=== PATIENT | female | born 1985 ===

== ENCOUNTER 2024-08-19 12:37 | Outpatient (REF) | payer MEDICAID, SELFPAY ==
[2024-08-19 13:55] LABS: Estimated Average Glucose 111 mg/dL; Hemoglobin A1c % 5.5 % (<6.0)
[2024-08-19 14:24] LABS: Alanine Aminotransferase 8 U/L (0-31); Alkaline Phosphatase 47 U/L (39-117); Anion Gap 9 (12-20); Aspartate Amino Transferase 13 U/L (5-31); Bilirubin Total 0.8 mg/dL (0.0-1.0); Blood Urea Nitrogen 5 mg/dL (9-16); Calcium 8.7 mg/dL (8.4-10.2); Carbon Dioxide 23 mmol/L (22-29); Chloride 111 mmol/L (96-108); Cholesterol 220 mg/dL (<200); Estimated Glomerular Filt Rate > 60; Glucose Random 75 mg/dL (60-115); HDL Cholesterol 45 mg/dL (>40); LDL Cholesterol Calculated 150 mg/dL (<100); Potassium 4.1 mmol/L (3.3-5.1); Sodium 139 mmol/L (135-145); TSH reflex Free T4 3.57 uIU/mL (0.32-4.0); Total Protein 7.6 g/dL (6.5-8.0); Triglycerides 129 mg/dL (<150)
[2024-08-20 11:53] LABS: Bacterial Vaginosis PCR POSITIVE (Negative); Candida Group PCR DETECTED (Not Detect); Candida glab krusei PCR NOT DETECTED (Not Detect); Trichomonas vaginalis PCR NOT DETECTED (Not Detect)
[2024-08-20 12:26] LABS: CT PCR NOT DETECTED (Not Detect.); NG PCR NOT DETECTED (Not Detect.)
== END 2024-08-19 12:38 | disposition home or self-care (01) ==
LOC: HO.HHCL 12:37
PROVIDERS: Visit Provider Nurse Practitioner Family
DX: N89.8 Other specified noninflammatory disorders of vagina (principal); E04.9 Nontoxic goiter, unspecified; R03.0 Elevated blood-pressure reading, without diagnosis of hypertension; Z13.1 Encounter for screening for diabetes mellitus
CPT/HCPCS: 0352U; 36415; 80053; 80061; 83036; 84443; 87491; 87591

== ENCOUNTER 2025-02-28 11:50 | Outpatient (REF) | payer MEDICAID, SELFPAY ==
--- OUTSIDE RECORDS SUMMARY | 2025-02-28 13:52 | XMS_ITS | Encounter Summary ---
Author Organization [employer] Address [address] [place] [address] Care Team Providers Care Bakery Technician Name Role Phone Racheal Hart NP Primary Care Provider [phone] Encounter Details Date Type Department Care Team (Latest Contact Info) Description 02/28/2025 Travel Social History Tobacco Use Types Packs/Day Years Used Date Smoking Tobacco: Never Passive Smoke Exposure: Never Smokeless Tobacco: Never Depression Answer Date Recorded Patient Health Questionnaire-9 Score 15 02/28/2025 Patient Health Questionnaire-9 Score 15 02/28/2025 Last PHQ-9: Questionnaire Data Not on file 0 02/28/2025 Housing Stability Answer Date Recorded What is your housing situation today? I am not s ure 02/28/[address] you li ve. Do you have problems with any of the following? I am not sure 02/28/2025 Food Insecurity Answer Date Recorded Within the past 12 months, y ou worried that your food would run out before you got money to buy more: Sometimes True 2024 Within the past 12 months,th e food you bought just didn't last and you didn't have enough money to get more: Often true 02/28/2025 Utilities Answer Date Recorded In the past 12 months, has t he electric, gas, oil or water company threatened to shut off services in your home? No 02/28/2025 Depression Answer Date Recorded Patient Health Questionnaire-2 Score 4 02/28/2025 Internet Access Answer Date Recorded Internet Access Q1 Yes 02/28/2025 Internet Access Q2 Not on file 02/28/2025 Comments Unknown Sex and Gender Information Value Date Recorded Sex Assigned at Female 07/10/2024 9:51 AM EDT Legal Sex Female 9:49 AM EDT Gender Identity Female 07/10/2024 9:51 AM EDT Sexual Orientation Straight 07/10/2024 9: 51 AM EDT documented as of this encounter Plan of Treatment Upcoming Encounters Date Type Department Care Team (Late st Contact Info) Description 03/14/2025 11:00 AM EDT Clinical Support [address] [address] 05/12/2025 2:30 PM EDT Office Visit [address] [address] Racheal Hart NP [address] [place] [address] documented as of this encounter Visit Diagnoses Not on filedocumented in this encounter Additional Health Concerns Assessment Noted Time PHQ-9 Depression Total Score: 15 025 10:25 AM EDT documented as of this encounter Care Teams Bakery Technician Relationship Specialty Start Date End Date Racheal Hart NP [address] [place] [id number] PCP - General Family Medicine 12/30/24 documented as of this encounter
--- OUTSIDE RECORDS SUMMARY | 2025-02-28 13:52 | XMS_ITS | Clinical Summary ---
Author Organization [facility] Address [address] [place] [address] Care Team Providers Care Development Mechanic Name Role Phone Jostin Alvarado MD Primary Care Provider + Source Comments PLEASE NOTE, if this patient is a minor, it may be UNLAWFUL to discuss sensitive information that is contained in these records (such as FAMILY PLANNING, MENTAL HEALTH or SUBSTANCE ABUSE) with the minor patient's parent or other person without the patient's specific authorization.[facility] Allergies No known active allergies Medications acetaminophen (TYLENOL) 500 mg tabletIndication s:Pelvic pain Take 1 Tablet by mouth every 6 (six) hours as needed for pain 60 Tablet 2 Active prenat.vits,renny, woz-xyhx-vdfhe per tabletIndication s:Pelvic pain,27 weeks gestation of ([facility]) Take 1 Tablet by mouth once daily 90 Tablet 2 2 Active blood pressure test kit-mediumIndica tions:Chronic hypertension affecting ([facility]) Use twice daily 1 Kit 2 Active polyethylene glycol, PEG, 3350 17 gram packet Take 17 g by mouth once daily as needed for constipation 2 Active ferrous sulfate 325 mg (65 mg iron) tablet Take 1 Tablet by mouth every other day 2 Active NIFEdipine (PROCARDIA XL) 30 mg 24 hr tabletIndication s:Chronic hypertension Take 1 Tablet by mouth daily 90 Tablet 1 3 Active escitalopram (LEXAPRO) 10 mg tablet Take 1 Tablet by mouth once daily 90 Tablet 1 3 Active Active Problems Problem Noted Date Diagnosed Date Lives in homeless usp 01/19/2023 Overview (01/19/2023): Pt currently living in a usp, a hotel in [place], [place] Chronic hypertension 12/05/2022 Overview (12/27/2022): 12/27/2022: Taking 30 mg because 60 mg makes her dizzy but BP high; continue 30 mg and set up for remote BP monitoring 12/05/22: Taking Nifedipine 60 mg XL q am. Assessment & Plan (12/27/2022 3:01 PM EST): Pt reports taking 30 mg of nifedipine because 60 mg makes her dizzy; her BP today is 159/99 and she confirmed she took her medication today. In order to get better picture will register patient for remote BP monitoring - F/u in 1 week and follow via remote monitoring Anxiety and depression 12/05/2022 Overview (12/27/2022): ( ) F/U (ordered for within 1 month) 12/27/2022: Pt feeling much better on lexapro; advised pt to continue for at least 6 months to prevent recurrence 12/05/22: Rx Lexapro today. Counseled re side effects and risk of increased SI/HI and when to go to the ED. Discussed possible delay to effect. Referred to . 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 Now only taking nifedipine 60mg XL QAM and feeling very well. 10/18/2022: Nifedipine XL 60 mg at night and Labetalol 200 mg tablets-- 2 tablets in the morning (pt self-discontinued the evening Labetalol due to dizziness 1 hour later). Home BP checks bid. 10/04/2022: Re-presented @32 weeks with severe PEC and BPP 01/04--> Delivered by [facility]. 09/21/2022: Hospitalized 09/15- at [facility] for cHTN exacerbation, had severe range Bps but otherwise normal work-up, started on Nifedipine. Currently on Nifed 30QAM and 60QPM and continue Aspirin. BP normal at this visit. (x) ASA (ordered 07/27/22) ( ) BP checks at home (Rx sent) 09/01/22: Baseline PIH labs WNL. 24 hour urine protein collection 106. Pt had GHTN in 1st and took medications, but went into labor and had a normal delivery at term. With her second , she was diagnosed w/ CHTN and had an emergency for abnormal dopplers in the setting of CHTN at 29 wks. Assessment & Plan (10/20/2022 10:47 AM EST): Please continue to take Nifedipine XL 60 mg at night. Also take Labetalol 200 mg tablets-- 2 tablets in the morning. Take your blood pressure twice daily. 1.) Just before you take Nifedipine 2.) In the morning before taking Labetalol. Assessment & Plan (10/04/2022 3:19 PM EST): PT with worsening cHTN, started on Nifedipine 2 weeks ago. Pt reports today she is feeling unwell. Reports severe SAMANIEGO. Only gets rare SAMANIEGO when her pressure is high. but this one is very bad. PT appears unwell, Unable to keep eyes open. I informed pt of my concern for possible PreE and [facility]. History of appendectomy 07/27/2022 Resolved Problems Problem Noted Date Diagnosed Date Resolved Date Chronic hypertension affecti ng ([facility]) 09/15/2022 12/05/2022 Suboptimal dating 09/14/2022 12/05/2022 Overview (10/04/2022): Dating US at 27+5 wks gest. Sure LMP High-risk in third trimester ([facility]) 09/14/2022 12/05/2022 AMA (advanced maternal age) multigravida 35+ ([facility]) 09/14/2022 12/05/2022 Glucose intolerance 09/02/2022 12/05/19 23 Overview (09/07/2022): 09/06/2022: 3 hour GTT neg, 1/4 values elevated. 09/01/2022: 1 hour GTT 178. 3 hour ordered. Desires PP BTL 08/31/2022 12/05/2022 Overview (08/31/2022): 08/31/22: Counseling done and consent signed. Copy given to pt. History of delivery 07/27/2022 12/05/2022 Overview (09/21/2022): [ ] Clarify LTCS or Classical with patient if possible? check list w/ BTL: [] Sign surgical consent (Note: some OBs do this on day of surgery) [] Place orders placed in [facility] (can be done when requesting the case) [] Hibiclens instructions reviewed with patient (see .LgyHibiclensInstructions) [] Surgeon aware [] booked for: [x] Submit OR packet to assistant corporate secretary (if Main OR is needed, remember to request it) [x] Request the case in [facility] (Orders Only, Case Request LD Operating Room) Urgent at 29 wks gest in 2019 due to abnormal dopplers in the setting of CHTN. History of delivery 07/27/2022 12/05/2022 Overview (07/29/2022): Urgent at 29 wks gest in 2019 due to abnormal dopplers in the setting of CHTN and placental abruption. Fetus present>CHTN 07/27/2022 3 Overview (10/04/2022): Problems: cHTN on medication (worsening in 3rd trimester), Obesity (pre preg BMI 35), AMA (37) [ ] Deliver by 37 wk due to cHTN on medications. [ ] BPPs weekly starting at 32 wks -> scheduled for afternoons at [place] [ ] Growth USs monthly starting at 28 wks>ordered 09/14/22 (x) Level 2 US (ordered for 07/27/22)>WNL Normal intrauterine pregnanc y, antepartum ([facility]) 07/27/2022 12/05/2022 Overview (10/04/2022): Do not delete from problem list OB Checklist 07/27/2022 12/05/2022 Overview (09/21/2022): [] COVID vax counseling [x] Flu Vaccine: 09/21/22 [x] OBPE heart/lungs [x] Breast/pelvic exam [x] Obesity added to problem list (or N/A) and early HbA1c done>N/A [x] Aspirin? (see .LOBASPIRINGUIDELINES) [x] Surgical History reviewed and added to the problem list [] CfDNA: ordered [x] OB Intake reviewed .LobIntakeReview [x] Initial labs reviewed w/ patient [] Genetic carrier screening reviewed w/ patient: ordered [x] JANET finalized in Dating module of chart [x] OB Anatomy Survey completed (order at 13+)>ordered 08/31/22 [x] Tubal ligation addressed (24+) [x] 26+ week labs (26'0+)>ordered 08/31/22 [x] TDaP (28+) [x] Rhogam given if Rh neg (28)- N/A [x] 30 week surveillance plan [] STD re-screen (36+) .[id number] [] GBS sent (36'0+) [] Presentation confirmed (36+) by 07/27/2022 12/05/2022 Overview (10/06/2022): Delivered 10/05/2022 [facility] [place] [facility] [place] Presented to [facility] with SAMANIEGO & severe HTN 180/116 @29w6d --> [place] [facility] [place]: Pt still does not have insurance. We were not able to get ahold of her because she did not have a working phone. She now has a phone and Madan is taking her to the enrollment dept today. Presented to care at 22+5 wks gest. Sure LMP. Moved from [facility] in mid June. No previous care. Routine PCP Mom: No primary care provider on file. PCP Baby: Regular OB provider: Expects: Girl Support: Pain management: Feeding: PPBC: Unspecified pre-existing hyp ertension complicating , unspecified trimester ([facility]) 07/27/2022 12/05/2022 Overview (10/18/2022): 09/21/2022: Hospitalized 09/15- at [facility] for cHTN exacerbation, had severe range Bps but otherwise normal work-up, started on Nifedipine. Currently on Nifed 30QAM and 60QPM and continue Aspirin. BP normal at this visit. Received BMZ 09/14 and 09/15 (x) ASA (ordered 07/27/22) ( ) BP checks at home (Rx sent) 09/01/22: Baseline PIH labs WNL. 24 hour urine protein collection 106. Pt had GHTN in 1st and took medications, but went into labor and had a normal delivery at term. With her second , she was diagnosed w/ CHTN and had an emergency for abnormal dopplers in the setting of CHTN at 29 wks. Last Assessment & Plan: PT with worsening cHTN, started on Nifedipine 2 weeks ago. Pt reports today she is feeling unwell. Reports severe SAMANIEGO. Only gets rare SAMANIEGO when her pressure is high. but this one is very bad. PT appears unwell, Unable to keep eyes open. I informed pt of my concern for possible PreE and advised [facility]. Immunizations Immunization Administration Dates Next Due Flu, Preservative Free 09/21/2022 Hep B, Adult/Adol (ENERGIX/RECOMBIVAX) TDAP 08/31/2022 Family History Medical History Relation Name Comments No Known Problems Brother x5 No Known Problems Father No Known Problems Mother No Known Problems Sister 1 Relation Name Status Comments Brother x5 Alive Father Alive Mother Sister 1 Alive Social History Tobacco Use Types Packs/Day Years Used Date Smoking Tobacco: Never Passive Smoke Exposure: Never Smokeless Tobacco: Never Tobacco Cessation:Counseling Given: Not Answered Alcohol Use Standard Drinks/Week Comments Never 0 (1 standard drink = 0.6 oz pur e alcohol) Social Connections Answer Date Recorded Connectedness 0 08/05/2024 Financial Resource Strain Answer Date R ecorded Financial Resource Strain 0 2021 Stress Answer Date Recorded Stress 0 07/22/2022 Physical Activity Answer Date Recorded Physical Activity 0 07/22/2022 Food Insecurity Answer Date Recorded Food 0 08/31/2022 Transportation Needs Answer Date Record ed Transportation 0 08/31/2022 Housing Stability Answer Date Recorded Housing 0 08/31/2022 Safety and Environment Answer Date Jordan rded Safety 0 07/22/2022 Utilities Answer Date Recorded Utilities 0 08/31/2022 Employment Answer Date Recorded Stress 0 08/31/2022 Comments No Sex and Gender Information Value Date Recorded Sex Assigned at Not on file Legal Sex Female 6:37 AM PDT Gender Identity Not on file Sexual Orientation Not on file Last Filed Vital Signs Vital Sign Reading Time Taken Comments Blood Pressure 159/99 12/27/2022 2:20 PM EST Pulse 83 12/27/2022 2:20 PM EST Temperature 35.7 ??C (96.3 ??F) 12/27/2022 2:20 PM ES T Respiratory Rate 18 12/27/2022 2:20 PM EST Oxygen Saturation 98% 10/04/2022 2:32 PM EST Inhaled Oxygen Concentration - - Weight 80.9 kg (178 lb 6.4 oz) 12/27/2022 2:20 P M EST Height 154.9 cm (5' 1 ) 12/27/2022 2:20 PM EST Body Mass Index 33.71 12/27/2022 2:20 PM EST Plan of Treatment Health Maintenance Due Date Last Done Comments Anxiety Screening 1985 HPV Screening 1985 Lipid Screening 1985 Tobacco Screening 1985 Relationship Safety Screening/Counseling 2000 Imm-Hepatitis B (2 of 3 - 19 + 3-dose series) 10/12/2022 09/14/2022 Depression Monitoring 01/18/2023 10/18/2022, Diabetes Screening 10/07/2023 10/07/2022, 1 12/05/2021, 09/14/2022, Additional history exists [id number]-00 ( season) 2024 Imm-Influenza (#1) 2024 09/21/2022 Alcohol and Drug Screen 11/27/2024 10/18/2022 Pap Smear 08/03/2025 08/03/2022 Cervical Cancer Screening 08/03/2027 Pap + HPV 08/03/2027 08/03/2022 Imm-DTaP/Tdap/Td (2 - Td or Tdap) 08/31/2032 HIV Screening Completed 09/01/2022, 09/01/2022 Hepatitis B Screening Completed 09/01/2022, Hepatitis C Screening Completed 09/01/2022, Cervical Ablation/Cold-Knife Conization Discontinued Cervical Cryotherapy Discontinued Colposcopy Discontinued Endometrial Biopsy Discontinued Excision/Leep Discontinued HPV Genotyping Discontinued Vaginal Pap Discontinued Vulvoscopy Discontinued Procedures Procedure Name Priority Date/Time Associated Diagnosis Comments GTT GLUCOSE 3HR Routine 09/06/2022 8:59 AM EDT Glucose intolerance HIV 1/2 AG/AB Routine 09/01/2022 2:20 PM EDT 27 weeks gestation of HEPATITIS B SURFACE AG Routine 09/01/2022 2:20 PM EDT 27 weeks gestation of HEPATITIS C ANTIBODY Routine 09/01/2022 2:20 PM EDT 27 weeks gestation of [facility] CYTOLOGY REPORT Routine 08/03/2022 5 :53 PM EDT Screening for malignant neoplasm of cervix from Last 3 Months or Most Recently Relevant to Health Maintenance Results * GTT GLUCOSE 3HR (09/06/2022 8:59 AM EDT) GLUCOSE FASTING 72 65 - 99 mg/dL [facility] HALF HR GLUCOSE PENDING mg/dL [facility] ONE HR GLUCOSE 157 mg/dL [facility] TWO HR GLUCOSE 157 mg/dL [facility] THREE HR GLUCOSE 127 mg/dL [facility] Comment:Processed and/or per formed at [address] [place] [address] ONE HR GLUCOSE 157 mg/dL [facility] TWO HR GLUCOSE 157 mg/dL [facility] THREE HR GLUCOSE 127 mg/dL [facility] Comment:Processed and/or per formed at [address] [place] [address] Blood Blood / Unknown 09/06/2022 8 :59 AM EDT Tianna Vann MD LAB - BLOOD DRAW Final Resu lt [address]?? [place] [address], * HIV 1/2 AG/AB (09/01/2022 2:20 PM EDT) HIV 1/2 AB/AG Negative Negative [facility] Comment:Processed and/or per formed at [address] [place] [address] Blood Blood / Unknown 09/01/2022 2 :20 PM EDT Rufus Boone CNM LAB - BLOOD DRAW Final Result [address] [place] [address], [place] [phone] * HEPATITIS B SURFACE AG (09/01/2022 2:20 PM EDT) HBV SURFACE ANTIGEN Negative Negative [facility] Comment:Processed and/or per formed at [address] [place] [address] Blood Blood / Unknown 09/01/2022 2 :20 PM EDT Rufus Boone [facility] LAB - BLOOD DRAW Final Result Performing Organization Address City/[facility]/ZIP Co de Phone Number [facility] [address] [place] [address], * HEPATITIS C ANTIBODY (09/01/2022 2:20 PM EDT) HCV ANTIBODY Negative Negative [facility] Comment:Processed and/or per formed at [address] [place] [address] Blood Blood / Unknown 09/01/2022 2 :20 PM EDT Rufus Boone [facility] LAB - BLOOD DRAW Final Result Performing Organization Address City/[facility] Co de Phone Number [facility] [address] [facility] [place] [address], [place] [phone] * [facility] CYTOLOGY REPORT (08/03/2022 5:53 PM EDT) [facility] CYTO See Report [facility] Comment: [address] [address] Railroad Worker: Keyon Houston MD ?? [facility] Cytology Report FINAL DIAGNOSIS A. ??CERVICAL, LIQUID BASED SPECIMEN: SPECIMEN ADEQUACY: Satisfactory for evaluation; transformation zone absent/insufficient. INTERPRETATION: NEGATIVE FOR INTRAEPITHELIAL LESION OR MALIGNANCY. This specimen was analyzed by the automated ThinPrep Imaging System ([employer].) and the selected yu were reviewed by a drywall hanger framer. Electronically Signed Out By: ??LORETO Barrera(ASCP) The Pap test is a screening test primarily for squamous cancers and precursors and has associated false-negative and false-positive results. ??New technologies such as liquid-based preparations may decrease but will not eliminate all false-negative results. ??Regular sampling and follow-up of unexplained clinical signs and symptoms are recommended to minimize false negative results. PROCEDURES/ADDENDA HPV Testing Requested from Pap Exam Ordered Date: 08/08/2022 ? Testing for HPV has been initiated and will be reported as a laboratory result. CLINICAL HISTORY Date of Last Menstrual Period: ??02/18/2022 Menstrual History: ?? Other Clinical Conditions: ??Routine: Z12.4 Client Client Order Number: ??[id number] SPECIMEN SOURCE A: CERVICAL, LIQUID BASED SPECIMEN GROSS DESCRIPTION One ThinPrep vial received from which a single Pap-stained slide was prepared. Processing and cytotech screening of this specimen performed at [facility], [address] [place], [place] [address]. ?? Patient Name: ??ERNIE SIDDIQUI : ??1985 (Age: 37) Sex: ??F Institution: ??[facility] Location: ??[facility] Date of Collection: ??08/03/2022 Date of Reported: ??08/08/2022 14:29 Ordered By: ??Delbert Guido MD Copy To: Cervix Cervix uteri structure / Unknown 08/03/2022 5:53 PM EDT Delbert Guido MD LAB - NO BLOOD DRAW Final Resu lt [address]?? [place] [address], from Last 3 Months or Most Recently Relevant to Health Maintenance Insurance [place] MEDICA[place] Member Subscriber Plan / Payer (Ef fective 2022-Present) Name:Ernie Siddiqui Relation to Subscriber:Self Name:Ernie Siddiqui Payer ID:[id number] Group ID:Not on file Type:Medicaid Address: [address] [place] [id number] [place] [facility] Care Teams Development Mechanic Relationship Specialty Start Date End Date Jostin Alvarado MD [address] [place] [phone] PCP - General Family Medicine, Physician 12/27/22
--- OUTSIDE RECORDS SUMMARY | 2025-02-28 13:52 | XMS_ITS | Encounter Summary ---
Author Organization [facility] [employer] Address [address] [place] [address] Care Team Providers Care Cable Worker Helper Name Role Phone Racheal Hart NP Primary Care Provider [phone] Encounter Details Date Type Department Care Team (Late st Contact Info) Description 02/28/2025 10:15 AM EDT Office Visit [facility] [address] [place] [address] Racheal Hart NP [address] [place] [address] Hypertension, unspecified type (Primary Dx); Dietary counseling; Exercise counseling; Obesity (BMI 30-39.9); Healthcare maintenance; Encounter for immunization Social History Tobacco Use Types Packs/Day Years [...] AM EDT documented as of this encounter Last Filed Vital Signs Vital Sign Reading Time Taken Comments Blood Pressure 152/106 02/28/2025 10:33 AM EDT Pulse 74 02/28/2025 10:33 AM EDT Temperature 36.3 ??C (97.3 ??F) 02/28/2025 10:33 AM E DT Respiratory Rate 16 02/28/2025 10:33 AM EDT Oxygen Saturation 98% 02/28/2025 10:33 AM EDT Inhaled Oxygen Concentration - - Weight 76.4 kg (168 lb 6.4 oz) 02/28/2025 10:33 AM EDT Height 157.5 cm (5' 2 ) 02/28/2025 10:33 AM EDT Body Mass Index 30.8 02/28/2025 10:33 AM EDT documented in this encounter Progress Notes * Skyla Santana RN - 02/28/2025 10:15 AM EDT Pt booked for BP check visit on 03/14/25 at 11:00 AM with blue team nurses. documented in this encounter Plan of Treatment Upcoming Encounters Date Type Department Care Team (Late st Contact Info) Description 03/14/2025 11:00 AM EDT Clinical Support [facility] [address] [place] [phone] 05/12/2025 2:30 PM EDT Office Visit [facility] [address] [place] [phone] Racheal Hart NP [address] [place] [address] Scheduled Orders Name Type Priority Associated Diagnoses Orde r Schedule Hepatitis C Antibody with Reflex to HCV, RNA, Quantitative, Real-Time PCR Lab Routine Obesity (BMI 30-39.9) Expected: 02/28/2025, Expires: 02/28/2026 Hemoglobin A1c Lab Routine Obesity (BMI 30-39.9) Expected: 02/28/2025 (Approximate), Expires: 02/28/2026 Comprehensive Metabolic Panel Lab Routine Obesity (BMI 30-39.9) Expected: 02/28/2025 (Approximate), Expires: 02/28/2026 Measles, Mumps, and Rubella (MMR) Antibodies??(IgG) Panel, Immune Status Lab Routine Healthcare maintenance Expected: 02/28/2025 (Approximate), Expires: 02/28/2026 Hepatitis B Core Antibody, Total Lab Routine Healthcare maintenance Encounter for immunization Expected: 02/28/2025 (Approximate), Expires: 02/28/2026 Hepatitis B Surface Antibody, Qualitative Lab Routine Encounter for immunization Expected: 02/28/2025 (Approximate), Expires: 02/28/2026 T-SPOT??.TB Lab Routine Encounter for immunization Expected: 02/28/2025 (Approximate), Expires: 02/28/2026 Varicella Zoster Antibody, IgG Lab Routine Encounter for immunization Expected: 02/28/2025 (Approximate), Expires: 02/28/2026 Hepatitis B surface antigen, EIA Lab Routine Healthcare maintenance Encounter for immunization Expected: 02/28/2025 (Approximate), Expires: 02/28/2026 RPR (Monitor) with Reflex to??Titer Lab Routine Healthcare maintenance Encounter for immunization Expected: 02/28/2025, Expires: 02/28/2026 HIV-1/2 Antigen and Antibodies, Fourth Generation, with Reflexes Lab Routine Healthcare maintenance Encounter for immunization Expected: 02/28/2025 (Approximate), Expires: 02/28/2026 documented as of this encounter Visit Diagnoses Diagnosis Hypertension, unspecified type- Primary Dietary counseling Dietary surveillance and counseling Exercise counseling Obesity (BMI 30-39.9) Healthcare maintenance Encounter for immunization documented in this encounter Additional Health Concerns Assessment Noted Time PHQ-9 Depression Total Score: 15 025 10:25 AM EDT documented as of this encounter Care Teams Cable Worker Helper Relationship Specialty Start Date End Date Racheal Hart NP [address] [place] [address] PCP - General Family Medicine 12/30/24 documented as of this encounter
--- OUTSIDE RECORDS SUMMARY | 2025-02-28 13:52 | XMS_ITS | Clinical Summary ---
Author Organization [employer] Address [address] [place] [address] Care Team Providers Care Funeral Home Location Manager Name Role Phone Racheal Hart NP Primary Care Provider [phone] Allergies No known active allergies Medications olmesartan (Benicar) 20 MG tablet Take 1 tablet (20 mg) by mouth Once per day. 90 tablet 2 5 02/29/20 26 Active NIFEdipine XL (Procardia XL) 30 MG 24 hr tabletIndicatio ns:Elevated blood pressure reading TAKE 1 TABLET BY MOUTH ONCE DAILY. DO NOT BREAK, CRUSH, DISSOLVE OR CHEW. 90 tablet 4 02/29/20 25 Discontinu ed(Side effects) Active Problems Problem Noted Date Diagnosed Date Hypertension 02/28/2025 Dietary counseling 02/28/2025 Exercise counseling 02/28/2025 Obesity (BMI 30-39.9) 02/28/2025 Healthcare maintenance 02/28/2025 Encounter for immunization 02/28/2025 Goiter 08/20/2024 Assessment & Plan (08/20/2024 11:15 AM EDT): Thyroid ultrasound and labs completed Elevated blood pressure reading 08/19/2024 Vaginal discharge 08/19/2024 Assessment & Plan (08/20/2024 11:14 AM EDT): Reviewed option of presumptive treatment for brandon vs waiting for testing results, pt opts to treat today, Swab collected and submitted Ear discomfort, bilateral 07/10/2024 Assessment & Plan (07/10/2024 10:32 AM EDT): Pt reports itching of bilateral ears for a couple years, since she has lived in [facility]. -exam normal, suspect overuse of qtips causing excessive dryness -discussed avoiding irritation through use of Q-tips or other cleaning objects -discussed return and ER precautions [facility] 01/19/2023 Overview (09/12/2024): Pt currently living in a penitentiary, a hotel in [place], [place] Chronic hypertension 12/05/2022 Overview (07/10/2024): 12/27/2022: Taking 30 mg because 60 mg makes her dizzy but BP high; continue 30 mg and set up for remote BP monitoring 12/05/22: Taking Nifedipine 60 mg XL q am. Last Assessment & Plan: Pt reports taking 30 mg of nifedipine because 60 mg makes her dizzy; her BP today is 159/99 and she confirmed she took her medication today. In order to get better picture will register patient for remote BP monitoring - F/u in 1 week and follow via remote monitoring Assessment & Plan (08/20/2024 11:14 AM EDT): Above goal today, resume previous medication of nifedipine 30 mg, rtc in 2 weeks for repeat bp, Labs as ordered below depression 12/05/2022 Overview (09/12/2024): ( ) F/U (ordered for within 1 month) 12/27/2022: Pt feeling much better on lexapro; advised pt to continue for at least 6 months to prevent recurrence 12/05/22: Rx Lexapro today. Counseled re side effects and risk of increased SI/HI and when to go to the ED. Discussed possible delay to effect. Referred to . Last Assessment & Plan: Pt feeling much better on lexapro; advised pt to continue for at least 6 months to prevent recurrence - F/u at scheduled appt in 1 week Chronic hypertension affecting 022 AMA (advanced maternal age) multigravida 35+ High-risk in third trimester 2 with uncertain dates in third trimeste r 09/14/2022 Overview (09/12/2024): Dating US at 27+5 wks gest. Sure LMP Glucose intolerance 09/02/2022 Overview (07/10/2024): 09/06/2022: 3 hour GTT neg, 1/4 values elevated. 09/01/2022: 1 hour GTT 178. 3 hour ordered. 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 We were not able to get ahold of her because she did not have a working phone. She now has a phone and Madan is taking her to the enrollment dept today. Presented to care at 22+5 wks gest. Sure LMP. Moved from [facility] in mid June. No previous care. Routine PCP Mom: No primary care provider on file. PCP Baby: Regular OB provider: Expects: Girl Support: Pain management: Feeding: PPBC: screening encounter 07/27/2022 Overview (09/12/2024): [] COVID vax counseling [x] Flu Vaccine: 09/21/22 [x] OBPE heart/lungs [x] Breast/pelvic exam [x] Obesity added to problem list (or N/A) and early HbA1c done>N/A [x] Aspirin? (see .LIZZASPIRINGUIDELYG) [x] Surgical History reviewed and added to [...] week surveillance plan [] STD re-screen (36+) .[id number] [] GBS sent (36'0+) [] Presentation confirmed (36+) by Fetus present, antepartum 07/27/2022 Overview (09/12/2024): Problems: cHTN on medication (worsening in 3rd trimester), Obesity (pre preg BMI 35), AMA (37) [ ] Deliver by 37 wk due to cHTN on medications. [ ] BPPs weekly starting at 32 wks -> scheduled for afternoons at [facility] [ ] Growth USs monthly starting at 28 wks>ordered 09/14/22 (x) Level 2 US (ordered for 07/27/22)>WNL Normal intrauterine , antepartum 2021 Overview (09/12/2024): Do not delete from problem list Unspecified pre-existing hyp ertension complicating , unspecified trimester 07/27/2022 Overview (09/12/2024): 11/14/2022: patient stopped labetolol as was having [...] severe PEC and BPP 01/04--> Delivered by [facility]. 09/21/2022: Hospitalized at [facility] for cHTN exacerbation, had severe range [...] at 29 wks. Last Assessment & Plan: Please continue to take Nifedipine XL 60 mg at night. Also take Labetalol 200 mg tablets-- 2 tablets in the morning. Take your blood pressure twice daily. 1.) Just before you take Nifedipine 2.) In the morning before taking Labetalol. 09/21/2022: Hospitalized at [facility] for cHTN exacerbation, had severe range [...] [facility]. Encounters Date Type Department Care Team Description 02/28/2025 10:15 AM EDT Office Visit [facility] [address] [place] [phone] Racheal Hart NP Hypertension, unspecified type (Primary Dx); Dietary counseling; Exercise counseling; Obesity (BMI 30-39.9); Healthcare maintenance; Encounter for immunization 02/28/2025 Travel 02/18/2025 Orders Only [facility] [address] [place] [address] Provider, MD Bernie 02/17/2025 Telephone [facility] [address] [place] [address] Irene Bearden MA Chart Prep 02/07/2025 Population Health Risk Score Community [facility] ([facility]) Department [address] [address] Provider, Population Health Generic from Last 3 Months Immunizations Name Administration Dates Next Due Hep B, adult 09/14/2022 Influenza injectable quadrivalent preservative f ree 09/21/2022 Pfizer Covid-19 Vaccine 12+ 02/28/2025 Tdap 02/28/2025,08/31/2022 Social History Tobacco Use Types Packs/Day Years Used Date Smoking Tobacco: Never Passive Smoke Exposure: Never Smokeless Tobacco: Never Tobacco Cessation:Counseling Given: Not Answered Depression Answer Date Recorded Patient Health Questionnaire-9 [...] Orientation Straight 07/10/2024 9: 51 AM EDT Last Filed Vital Signs Vital Sign Reading [...] Mass Index 30.8 02/28/2025 10:33 AM EDT Plan of Treatment Upcoming Encounters Date Type Department Care Team (Late st Contact Info) Description 03/14/2025 11:00 AM EDT Clinical Support [address] [phone] 05/12/2025 2:30 PM EDT Office Visit [facility] [address] [place] [address] Racheal Hart, SAI [address] [place] [address] Health Maintenance Due Date Last Done Comments SDOH Screening 1985 Alcohol/Substance Use Screening 1997 Family Planning (PISQ) 2000 Hepatitis C Screening 2003 Hepatitis B Vaccines (2 of 3 - 19+ 3-dose series) 10/12/2022 09/14/2022 Influenza Vaccine (#1) 2024 09/21/2022 Depression Monitoring (PHQ-9) 08/30/2025, 02/28/2025 Depression Screening 02/28/2026 02/28/2025, 02/28/2025 Tobacco Screening 02/28/2026 02/28/2025 Cervical Cancer Screening 08/08/2027 HPV/Cotest 08/08/2027 Pap Smear 08/08/2027 08/08/2022 Lipid Panel 08/19/2029 08/19/2024 DTaP/Tdap/Td Vaccines (3 - T d or Tdap) 02/28/2035 02/28/2025, 08/31/2022 Zoster Vaccines (1 of 2) 2035 RSV Patients and Patients Aged 60 years or older (1 - 1-dose 75+ series) 2060 HIV Screening Completed 09/01/2022 COVID-19 Vaccine Completed 02/28/2025 HIB Vaccines Aged Out No longer eligi ble based on patient's age to complete this topic HPV Vaccines Aged Out No longer eligi ble based on patient's age to complete this topic Hepatitis A Vaccines Aged Out No long er eligible based on patient's age to complete this topic IPV Vaccines Aged Out No longer eligi ble based on patient's age to complete this topic Meningococcal Vaccine Aged Out No kiko kwame eligible based on patient's age to complete this topic Pneumococcal Vaccine: Pediatrics (0 to 5 Years) and At-Risk Patients (6 to 49) Years) Aged Out No longer eligible b ased on patient's age to complete this topic RSV under 20 months Aged Out No longe r eligible based on patient's age to complete this topic Rotavirus Vaccines Aged Out No longer eligible based on patient's age to complete this topic Procedures Procedure Name Priority Date/Time Associated Diagnosis Comments LIPID PANEL, STANDARD Routine 08/19/2024 12:40 PM EDT Elevated blood pressure reading HM PAP/HPV Routine 08/08/2022 10:37 AM EDT from Last 3 Months or Most Recently Relevant to Health Maintenance Results * (ABNORMAL) Lipid Panel, Standard (08/19/2024 12:40 PM EDT) Triglycerides 129 <150 mg/dL [facility] Comment:Desirable Triglyceri de: less than 150 mg/dLBorderline High Triglyceride 150-199 mg/dLHigh Triglyceride: 200-499 mg/dLVery High Triglyceride: greater than or equal to 5OO mg/dL Cholesterol 220(H) <200 mg/dL [facility] Comment:Desirable Cholestero l: less than 200 mg/dLBorderline High Cholesterol: 200-239 mg/dLHigh Cholesterol: greater than 239 mg/dL LDL Cholesterol Calculated 150(H) <100 mg/dL [facility] Comment:Desirable LDL: less than 100 mg/dLNear Optimal/Above Optimal LDL: 110- 129 mg/dLBorderline High LDL: 130-159 mg/dLHigh LDL: 160-189 mg/dLVery High LDL: greater than or equal to 190 mg/dL HDL Cholesterol 45 >40 mg/dL [facility] Comment:Desirable HDL: great er than 40 mg/dL Note: This HDL assay may give artificially low results in patients with liver disease. Blood Venous blood specimen / Unknown 08/19/2024 12:40 PM EDT 08/19/2024 1:21 PM EDT Racheal Hart NP LAB BLOOD ORDERABLES Final Resul t [facility] [address] [place] [address] [phone] * HM PAP/HPV (08/08/2022 10:37 AM EDT) us Historical Provider HEALTH MAINTENANCE Final Result from Last 3 Months or Most Recently Relevant to Health Maintenance Insurance [employer] Care Teams Funeral Home Location Manager Relationship Specialty Start Date End Date Racheal Hart NP [address] [place] [address] PCP - General Family Medicine 12/30/24
--- OUTSIDE RECORDS SUMMARY | 2025-02-28 13:52 | XMS_ITS | Encounter Summary ---
Author Organization [employer] Address [address] [place] [address] Care Team Providers Care Aircraft Inspector Name Role Phone Racheal Hart NP Primary Care Provider [phone] Encounter Details Date Type Department Care Team (Late Contact Info) Description 02/18/2025 Orders Only [facility] [address] [place] [address] Provider, MD Bernie Social History Tobacco Use Types Packs/Day Years Used Date Smoking Tobacco: Never Passive Smoke Exposure: Never Smokeless Tobacco: Never Comments Unknown Sex and Gender Information Value Date Recorded Sex Assigned at Female 07/10/2024 9:51 AM EDT Legal Sex Female 9:49 AM EDT Gender Identity Female 07/10/2024 9:51 AM EDT Sexual Orientation Straight 07/10/2024 9: 51 AM EDT documented as of this encounter Plan of Treatment Upcoming Encounters Date Type Department Care Team (Late Contact Info) Description 03/14/2025 11:00 AM EDT Clinical Support [facility] [address] [place] [phone] 05/12/2025 2:30 PM EDT Office Visit [facility] [address] [place] [phone] Racheal Hart NP [address] [place] [address] documented as of this encounter Procedures Procedure Name Priority Date/Time Associated Diagnosis Comments HM PAP/HPV Routine 08/08/2022 10:37 AM EDT documented in this encounter Results * HM PAP/HPV (08/08/2022 10:37 AM EDT) us Historical Provider MD HEALTH MAINTENANCE Final Result documented in this encounter Visit Diagnoses Not on filedocumented in this encounter Care Teams Aircraft Inspector Relationship Specialty Start Date End Date Racheal Hart NP [address] [place] [phone] PCP - General Family Medicine 12/30/24 documented as of this encounter
[2025-02-28 14:00] LABS: Alanine Aminotransferase < 6 U/L (0-31); Albumin Level 4.1 g/dL (3.5-5.0); Alkaline Phosphatase 60 U/L (39-117); Anion Gap 12 (12-20); Aspartate Amino Transferase 16 U/L (5-31); Bilirubin Total 0.8 mg/dL (0.0-1.0); Blood Urea Nitrogen 10 mg/dL (9-16); Calcium 8.8 mg/dL (8.4-10.2); Carbon Dioxide 24 mmol/L (22-29); Chloride 109 mmol/L (96-108); Estimated Glomerular Filt Rate > 60; Glucose Random 83 mg/dL (60-115); Potassium 3.8 mmol/L (3.3-5.1); Sodium 141 mmol/L (135-145); Total Protein 7.5 g/dL (6.5-8.0)
[2025-02-28 14:21] LABS: Estimated Average Glucose 120 mg/dL; Hemoglobin A1C 116.4737 umol/L; Hemoglobin A1c % 5.8 % (<6.0); Total Hemoglobin (HGBA1C) 2927.1098 umol/L
[2025-03-01 07:39] LABS: HBS Num1 1.05 mIU/mL (0-7.99); HBc Num1 0.06 S/CO (0.00-0.79); HBsAGNum1 0.24 S/CO (0.00-0.99); HIV AB/AG Nonreactive (Nonreactive); HIV Num 1 0.06 S/CO (0.00-0.99); Hepatitis B Core Antibody Nonreactive (Nonreactive); Hepatitis B Surface Antigen Negative (Negative); ~Hepatitis B Surface Antibody NONREACTIVE (Nonreactive); ~Hepatitis C Antibody Nonreactive (Nonreactive)
[2025-03-03 07:13] LABS: RPR Rapid Plasma Reagin NON-REACTIVE (NON-REACTIVE)
[2025-03-03 12:48] LABS: TS Negative Control Passed; TS Panel A 4; TS Panel B 0; TS Positive Control Passed; TSpotTB Negative (Negative)
[2025-03-03 21:48] LABS: Rubeola IgG (Measles) >300.00 AU/mL; Varicella IgG Antibody 9.96 S/CO
== END 2025-02-28 11:51 | disposition home or self-care (01) ==
LOC: HO.HHCL 11:50
PROVIDERS: Visit Provider Nurse Practitioner Family
DX: Z00.00 Encounter for general adult medical examination without abnormal findings (principal); E66.9 Obesity, unspecified; Z28.39 Other underimmunization status
CPT/HCPCS: 36415; 80053; 83036; 86481; 86592; 86704; 86706; 86735; 86762; 86765; 86787; 86803; 87340; 87389